=== PATIENT | female | born 1945 | race Caucasian/White ===

== ENCOUNTER 2020-02-17 15:39 | Emergency (ER) | payer OTHER ==
[~2020-02-17] VITALS: Ht 147.3 cm; Wt 57.7 kg
[~2020-02-17 15:39] MED LIST: ACETAMINOPHEN500 M1 PO; ADVAIR 250/501 DISK INH; CALCIUM 600 +1 EAC3 PO; CARDIZEM CD180 MG PO; CELEXA20 MG PO; CLOTRIM ANTIFUN15 GM TOPICAL; COMBIVENT RESPIM4 GM INH; CRESTOR40 MG PO; FISH OIL 1,0001 CA1 PO; GAS-X80 MG PO; GLUCOVANCE 5/501 TAB PO; LEVOXYL112 MC1 PO; LIDODERM 5 %1 PATCH TRANSDERM; METOPROLOL TAR100 M1 PO; NITRO-DUR0.6 MG TRANSDERM; NITROQUICK0.4 MG SL; NYSTATIN15 GM TOPICAL; PRADAXA150 MG PO; PROVENTIL/2.5 MG/3 M NEB; SALINE NASAL SP45 ML NS; TRICOR145 MG PO; ZETIA10 MG PO
[2020-02-17 15:57] VITALS: Ht 147.3 cm; Wt 57.7 kg
[2020-02-17] MEDS ORDERED: ISOSORBIDE DINI20 MG PO (16:00)
[2020-02-17] MEDS ORDERED: BAYER CHEWABLE81 MG PO (16:02)
[2020-02-17] MEDS ORDERED: FUROSEMIDE20 MG PO (16:03)
[2020-02-17] MEDS ORDERED: KLOR-CON 1010 MEQ PO (16:03)
[2020-02-17] MEDS ORDERED: LISINOPRIL5 MG PO (16:04)
[2020-02-17] MEDS ORDERED: LIPITOR80 MG PO (16:04)
[2020-02-17] MEDS ORDERED: GLUCOPHAGE500 MG PO (16:05)
[2020-02-17 16:30] LABS: BASOPHILS 1.1 % (0-2); EOSINOPHILS 1.3 % (0-7); HEMATOCRIT 42.8 % (36.0-48.0); HEMOGLOBIN 13.7 g/dL (12-16); IMMATURE GRANULOCYTES 0.3 % (0-5); LYMPHOCYTES 13.9 % (15-50); MCH 31.4 pg (26.0-34.0); MCV 97.9 fL (80.0-100.0); MEAN PLATELET VOLUME 10.7 fL (7.4-10.4); MONOCYTES 12.5 % (2-11); NEUTROPHILS 70.9 % (40-80); PLATELET COUNT 301 10x3/uL (130-400); RBC 4.37 10x6/uL (4.00-5.40); RDW 16.7 % (11.5-14.5); WBC 11.3 10x3/uL (4.8-10.8)
[2020-02-17 16:52] LABS: ANION GAP -1.3 mmol/L (8-16); CALCIUM 11.4 mg/dL (8.5-10.1); CARBON DIOXIDE 25.9 mmol/L (21.0-32.0); CREATININE - SERUM 1.1 mg/dL (0.6-1.3); POTASSIUM - SERUM 4.6 mmol/L (3.5-5.1)
[2020-02-17 16:57] LABS: ALBUMIN 2.7 g/dL (3.4-5.0); BILIRUBIN - TOTAL 0.86 mg/dL (0.2-1.3); PROTEIN - SERUM 6.1 g/dL (6.4-8.2)
[2020-02-17 17:36] LABS: APTT 27.6 SECONDS (22.8-39.4)
[2020-02-17 17:40] LABS: INR 0.95 (0.85-1.17); PROTIME 12.6 SECONDS (11.6-15.0)
[2020-02-17] MEDS ORDERED: HYDROCORTISONE30 G8 TOPICAL (19:33)
[2020-02-17 20:04] VITALS: BP 110/75
== END 2020-02-17 20:04 | disposition home or self-care (01) ==
LOC: D.ER 15:39
PROVIDERS: Family Medicine
DX: K64.9 Unspecified hemorrhoids (principal); E11.9 Type 2 diabetes mellitus without complications; I10 Essential (primary) hypertension; J44.9 Chronic obstructive pulmonary disease, unspecified; K21.9 Gastro-esophageal reflux disease without esophagitis; I25.2 Old myocardial infarction; Z72.0 Tobacco use; Z86.73 Personal history of transient ischemic attack (TIA), and cerebral infarction without residual deficits; Z79.84 Long term (current) use of oral hypoglycemic drugs

== ENCOUNTER 2020-02-26 01:51 | Inpatient (IN) | payer OTHER ==
[2020-02-26] VITALS (8 sets, daily range): BP systolic 106–171; BP diastolic 49–83; BMI 30.3
[~2020-02-26] VITALS: Ht 147.3 cm; Wt 65.8 kg
[~2020-02-26 01:51] MED LIST changes: +BAYER CHEWABLE81 MG PO; +FUROSEMIDE20 MG PO; +GLUCOPHAGE500 MG PO; +HYDROCORTISONE30 G8 TOPICAL; +ISOSORBIDE DINI20 MG PO; +KLOR-CON 1010 MEQ PO; +LIPITOR80 MG PO; +LISINOPRIL5 MG PO
[2020-02-26 02:27] LABS: BASOPHILS 0.7 % (0-2); EOSINOPHILS 0.3 % (0-7); HEMATOCRIT 42.3 % (36.0-48.0); HEMOGLOBIN 14.1 g/dL (12-16); IMMATURE GRANULOCYTES 0.6 % (0-5); LYMPHOCYTES 13.5 % (15-50); MCH 31.4 pg (26.0-34.0); MCHC 33.3 g/dL (31.0-37.0); MCV 94.2 fL (80.0-100.0); MONOCYTES 13.5 % (2-11); NEUTROPHILS 71.4 % (40-80); PLATELET COUNT 287 10x3/uL (130-400); RBC 4.49 10x6/uL (4.00-5.40); RDW 17.2 % (11.5-14.5)
[2020-02-26 02:37] LABS: CALC OSMOLALITY 275 mosm/kg (275-300); CALCIUM 10.2 mg/dL (8.5-10.1); CARBON DIOXIDE 24.5 mmol/L (21.0-32.0); CHLORIDE - SERUM 103 mmol/L (98-107); CREATININE - SERUM 1.1 mg/dL (0.6-1.3); GLUCOSE 83 mg/dL (74-106); POTASSIUM - SERUM 4.3 mmol/L (3.5-5.1); SODIUM 137 mmol/L (136-145); UREA NITROGEN 22 mg/dL (7-18); eGFR NON AFRICAN AMERICAN 52 mL/min (90-120)
[2020-02-26 02:47] LABS: ALBUMIN 2.3 g/dL (3.4-5.0); ALT (SGPT) 89 U/L (10-68); AMYLASE - SERUM 127 U/L (25-115); BILIRUBIN - TOTAL 1.69 mg/dL (0.2-1.3); LIPASE 553 U/L (73-393); PROTEIN - SERUM 6.6 g/dL (6.4-8.2); TROPONIN-I < 0.017 ng/mL (0.000-0.060)
[2020-02-26 02:49] LABS: ALKALINE PHOSPHATASE 1277 U/L (30-120)
[2020-02-26 03:03] LABS: BILIRUBIN NEGATIVE (NEGATIVE); GLUCOSE NEGATIVE (NEGATIVE); KETONE NEGATIVE (NEGATIVE); NITRITE NEGATIVE (NEGATIVE); UROBILINOGEN NORMAL (NORMAL)
[2020-02-26 03:06] LABS: AMORPHOUS SEDIMENT >1+ /lpf (NONE SEEN); BACTERIA MODERATE /hpf (NEGATIVE); EPITHELIAL CELLS 0-5 /hpf (0-5); RED CELLS - URINE 0-5 /hpf (0-5); WHITE CELLS - URINE 0-5 /hpf (NEGATIVE)
--- NOTE | 2020-02-26 03:38 | NUR ---
BACK FROM CT
[2020-02-26 05:05] LABS: INR 1.11 (0.85-1.17); PROTIME 14.3 SECONDS (11.6-15.0)
[2020-02-26 05:06] LABS: APTT 29.8 SECONDS (22.8-39.4)
--- NOTE | 2020-02-26 11:20 | NUR ---
REC'D IN BED WITH EYES CLOSED EASILY TO AROUSED WHEN NAME IS CALLED. RESP EVEN AND UNLABORD WITH NO DISTRESS NOTED OR VOICED. CAN EXPRESS NEEDS AND WANTS. DENIES ANY PAIN OR DISCOMFORT. ASSESSMENT COMPLETED. C/L IN REACH AT BEDSIDE.
--- NOTE | 2020-02-26 14:57 | NUR ---
MEDICATED WITH MOPRHINE AT THIS TIME FOR C/O ABD PAIN. C/ L IN REACH AT BEDSIDE.
--- NOTE | 2020-02-26 18:41 | NUR ---
I have reviewed this patient and I concur with the Shift Assessment completed by the Licensed Practical Nurse today this shift.
--- NOTE | 2020-02-26 20:00 | NUR ---
PATIENT RESTING IN BED WITH SON AT BEDSIDE. NO S/S OF ACUTE DISTRESS. NO C/O AT THIS TIME. PATIENT IS ALERT TO SELF ONLY, AROUSES TO VOICE THEN IMEADIATELY CLOSES EYES. PATIENT IS ON 2L NASAL CANNULA. PATIENT IV IN LEFT FOREARM, NORMAL SALINE @ 125 ML/HR. IV IS PATENT WITHOUT REDENSS, SWELLING, OR TENDERNESS. PATIENT IS GROANING, BUT DENIES PAIN WHEN ASKED. RESPONDS WITH "I DON'T KNOW", OR "NO". HEAR RATE AND BLOOD PRESSURE ARE NORMAL. PATIENT IS INCONTIENT OF BOWEL AND BLADDER. CALL LIGHT WITHIN REACH. BED ALARM ON. WILL CONTINUE TO MONITOR.
--- NOTE | 2020-02-26 23:00 | NUR ---
PATIENT O2 WAS 50% ON 2L, HEART RATE DROPPED TO 38. RAPID RESPONSE WAS CALLED. PATIENT PULLED UP IN BED AND SAT STRAIGHT UP. PATIENT'S O2 WAS INCREASED TO 5L AND O2 STAT STEADILY CLIMBED TO 92% AND STAYED THERE. RAPID RESPONSE WAS CANCELLED. ERNST REGALADO, WAS CALLED AND SHE ORDERED A BREATHING TREATMENT AND APRESOLINE. CALL LIGHT WITHIN REACH. BED ALARM ON . WILL CONTINUE TO MONITOR.
[2020-02-27] VITALS: BP 94/50
[2020-02-27 04:00] VITALS: BP 109/41
--- NOTE | 2020-02-27 04:37 | NUR ---
I have reviewed this patient and I concur with the Shift Assessment completed by the Licensed Practical Nurse today this shift.
[2020-02-27 05:17] LABS: BASOPHILS 0.5 % (0-2); EOSINOPHILS 0.1 % (0-7); HEMATOCRIT 42.4 % (36.0-48.0); HEMOGLOBIN 13.2 g/dL (12-16); IMMATURE GRANULOCYTES 2.1 % (0-5); LYMPHOCYTES 15.3 % (15-50); MCH 31.5 pg (26.0-34.0); MCHC 31.1 g/dL (31.0-37.0); MEAN PLATELET VOLUME 11.4 fL (7.4-10.4); MONOCYTES 9.6 % (2-11); NEUTROPHILS 72.4 % (40-80); PLATELET COUNT 296 10x3/uL (130-400); RBC 4.19 10x6/uL (4.00-5.40); RDW 18.6 % (11.5-14.5); WBC 14.6 10x3/uL (4.8-10.8)
[2020-02-27 05:18] LABS: MCV 101.2 fL (80.0-100.0)
[2020-02-27 05:39] LABS: ALBUMIN 2.1 g/dL (3.4-5.0); BILIRUBIN - TOTAL 1.71 mg/dL (0.2-1.3); PROTEIN - SERUM 6.1 g/dL (6.4-8.2)
[2020-02-27 05:52] LABS: CREATININE - SERUM 2.3 mg/dL (0.6-1.3)
[2020-02-27 05:53] LABS: ANION GAP 26.1 mmol/L (8-16); CARBON DIOXIDE 13.6 mmol/L (21.0-32.0); POTASSIUM - SERUM 7.7 mmol/L (3.5-5.1)
[2020-02-27 06:48] LABS: HEMATOCRIT 42.9 % (36.0-48.0); HEMOGLOBIN 13.3 g/dL (12-16); MCH 31.4 pg (26.0-34.0); MCV 101.2 fL (80.0-100.0); MEAN PLATELET VOLUME 11.2 fL (7.4-10.4); PLATELET COUNT 305 10x3/uL (130-400); RBC 4.24 10x6/uL (4.00-5.40); RDW 18.9 % (11.5-14.5); WBC 14.3 10x3/uL (4.8-10.8)
[2020-02-27 06:58] LABS: CHOL - HDL RATIO 4.6 ratio (2.3-4.1); LDL-HDL RATIO 1.7 ratio (1.5-3.5)
[2020-02-27 07:24] LABS: LYMPHOCYTES 23 % (15-50); NEUTROPHILS 74 % (40-80); PLATELET ESTIMATE NORMAL; POIKILOCYTOSIS OCC; POLYCHROMASIA OCC; TEAR DROP CELLS OCC
[2020-02-27 10:56] VITALS: Ht 147.3 cm; Wt 65.8 kg
[2020-02-27 14:09] LABS: ALPHA FETOPROTEIN -(TUMOR MRK) 7.5 ng/mL (0.0-8.3); CEA 77.9 ng/mL (0.0-4.7)
[2020-03-01 12:11] LABS: CA 19-9 QNS U/mL (())
== END 2020-02-27 11:28 | DRG 871 ==
LOC: D.ER 01:51 → D.ICU 04:55 → D.MS 04:55 → D.ICU 02-27 07:14
PROVIDERS: Family Medicine; Internal Medicine Hematology & Oncology; ADMIT Family Medicine; ATTEND Family Medicine
PROC: 0BH17EZ Insertion of Endotracheal Airway into Trachea, Via Natural or Artificial Opening (ICD-10-PCS; principal; 2020-02-27)
PROC: 0BH17EZ Insertion of Endotracheal Airway into Trachea, Via Natural or Artificial Opening (ICD-10-PCS; 2020-02-27)
DX: A41.9 Sepsis, unspecified organism (principal); K85.90 Acute pancreatitis without necrosis or infection, unspecified; K72.00 Acute and subacute hepatic failure without coma; J81.0 Acute pulmonary edema; R18.8 Other ascites; E72.20 Disorder of urea cycle metabolism, unspecified; K80.20 Calculus of gallbladder without cholecystitis without obstruction; E11.65 Type 2 diabetes mellitus with hyperglycemia; K21.9 Gastro-esophageal reflux disease without esophagitis; E03.9 Hypothyroidism, unspecified; I25.119 Atherosclerotic heart disease of native coronary artery with unspecified angina pectoris; J44.9 Chronic obstructive pulmonary disease, unspecified; I73.9 Peripheral vascular disease, unspecified; M19.90 Unspecified osteoarthritis, unspecified site; L40.9 Psoriasis, unspecified; F41.8 Other specified anxiety disorders; Z85.41 Personal history of malignant neoplasm of cervix uteri; Z85.820 Personal history of malignant melanoma of skin; I10 Essential (primary) hypertension; Z72.0 Tobacco use; E87.5 Hyperkalemia; R63.4 Abnormal weight loss; Z68.30 Body mass index [BMI] 30.0-30.9, adult; R11.2 Nausea with vomiting, unspecified; K76.9 Liver disease, unspecified; F17.200 Nicotine dependence, unspecified, uncomplicated